=== PATIENT | female | born 1990 | race Two or more races ===

== ENCOUNTER 2016-12-09 18:06 | Emergency (ER) | payer BC ==
[~2016-12-09] VITALS: Ht 162.6 cm; Wt 63.5 kg
[2016-12-09 18:33] VITALS: BP 111/70
--- NOTE | 2016-12-09 18:36 | Emergency Room Report ---
History of Present Illness General Chief Complaint: Skin Rash/Abscess Source: Patient Present Illness HPI 26-year-old female presents emergency department complaining of multiple itchy lesions on the upper extremity and thighs times one hour. Patient states acute onset while sitting on her couch eating ROM and. Patient denies allergies to food or medications. Patient reports swelling and erythema in multiple areas. Patient denies wheezing, swelling of the lips or tongue, shortness of breath or difficulty breathing. Patient denies taking medication and denies past medical history. Denies CP, Palpitations, LOC, AMS, dizziness, Changes in Vision, Sensation, paresthesias, or a sudden severe headache. Allergies: Coded Allergies: No Known Allergies (Unverified , 12/09/16) Patient History Past Medical History: see triage record Past Surgical History: none Pertinent Family History: none Last Menstrual Period: 11/25/16 Now: No Immunizations: UTD Reviewed Nursing Documentation: PMH: Agreed, PSxH: Agreed Nursing Documentation-PMH Past Medical History: No Stated History Review of Systems All Other Systems: negative except mentioned in HPI Physical Exam Vital Signs Date Time Temp Pulse Resp B/P Pulse Ox O2 Delivery O2 Flow Rate FiO2 12/09/16 18:14 98.2 70 17 111/70 97 Room Air Sp02 EP Interpretation: reviewed, normal General Appearance: no apparent distress, alert, GCS 15, non-toxic Head: normocephalic, atraumatic Eyes: bilateral eye PERRL, bilateral eye normal inspection ENT: hearing grossly normal, normal pharynx, no angioedema, normal voice Neck: full range of motion, supple/symm/no masses Respiratory: lungs clear, normal breath sounds, speaking full sentences Cardiovascular #1: regular rate, rhythm, no edema, normal capillary refill Musculoskeletal: back normal, gait/station normal, normal range of motion, non- tender, no calf tenderness Neurologic: alert, oriented x3, responsive, motor strength/tone normal, sensory intact, speech normal Psychiatric: judgement/insight normal, memory normal, mood/affect normal Skin: normal color, warm/dry, well hydrated, rash - multiple swollen papules that are non-confluent on the thighs and UE's bilaterally, no d/c, scabs, vessicles or blisters noted. Lymphatic: no adenopathy Medical Decision Making PA Attestation Dr. Osorio is my supervising Physician whom patient management has been discussed with. Diagnostic Impression: Primary Impression: Insect bites Qualified Codes: W57.XXXA - Bitten or stung by nonvenomous insect and other nonvenomous arthropods, initial encounter ER Course 26-year-old female presents emergency department complaining of multiple itchy lesions on the upper extremity and thighs times one hour. Patient states acute onset while sitting on her couch eating ROM and. Patient denies allergies to food or medications. Patient reports swelling and erythema in multiple areas. Patient denies wheezing, swelling of the lips or tongue, shortness of breath or difficulty breathing. Patient denies taking medication and denies past medical history. Denies CP, Palpitations, LOC, AMS, dizziness, Changes in Vision, Sensation, paresthesias, or a sudden severe headache. Ddx considered but are not limited to cellulitis, scabies, shingles, varicella, dermatitis, urticaria, eczema, tinea Vital signs: are WNL, pt. is afebrile H&PE are most consistent with Insect bites with localized reactions, no evidence of secondary infection. ORDERS: none required at this time, the diagnosis is clinical ED INTERVENTIONS: Benadryl PO DISCHARGE: At this time pt. is stable for d/c to home. Will provide printed patient care instructions, and any necessary prescriptions. Care plan and follow up instructions have been discussed with the patient prior to discharge. Last Vital Signs Date Time Temp Pulse Resp B/P Pulse Ox O2 Delivery O2 Flow Rate FiO2 12/09/16 18:14 98.2 70 17 111/70 97 Room Air Disposition: HOME, SELF-CARE Condition: Stable Scripts Hydrocortisone 2% Cream (ANTI-ITCH 2% CREAM) Y Cr 1 APPLIC TP TID, #28.3 GM Prov: Therese Cruz P.ATiffanie 12/09/16 Cetirizine Hcl* (ZYRTEC*) 10 Mg Tablet 10 MG ORAL DAILY, #30 TAB 0 Refills Prov: Therese Cruz P.ATiffanie 12/09/16 Diphenhydramine Hcl (BENADRYL ALLERGY) 25 Mg Tablet 25 MG PO QID for 7 Days, #30 TAB Prov: Therese Cruz P.A. 12/09/16 Patient Instructions: Insect Bite, [id number] Additional Instructions: Take medications as directed. Follow up with PCP in 3-5 days Return sooner to ED if new symptoms occur, or current symptoms become worse. Do not drink alcohol, drive, or operate heavy machinery while taking bendaryl as this may cause drowsiness. - Please note that this Emergency Department Report was dictated using [employer] clerk technology software, occasionally this can lead to erroneous entry secondary to interpretation by the dictation equipment. Therese Cruz. Dec 09, 2016 18:36
[2016-12-09] MEDS ORDERED: ZYRTEC10 MG ORAL (18:38)
[2016-12-09] MEDS ORDERED: ANTI-ITCH28 G1 TP (18:38)
[2016-12-09] MEDS ORDERED: BENADRYL ALLERG25 M1 PO (18:38)
[2016-12-09 18:51] VITALS: BP 111/70
== END 2016-12-09 18:51 | disposition home or self-care (01) ==
LOC: EMR 18:35
DX: S70.362A Insect bite (nonvenomous), left thigh, initial encounter (principal); S70.361A Insect bite (nonvenomous), right thigh, initial encounter; S40.862A Insect bite (nonvenomous) of left upper arm, initial encounter; S40.861A Insect bite (nonvenomous) of right upper arm, initial encounter; W57.XXXA Bitten or stung by nonvenomous insect and other nonvenomous arthropods, initial encounter; Y92.89 Other specified places as the place of occurrence of the external cause; R21 Rash and other nonspecific skin eruption
CPT/HCPCS: 99284